=== PATIENT | male | born 1940 | race Caucasian/White ===

== ENCOUNTER → 2019-03-31 | Outpatient (CLI) | payer MEDICARE | LOC: COL.RAD 10:25 | DX: I71.4 Abdominal aortic aneurysm, without rupture (principal); R91.8 Other nonspecific abnormal finding of lung field | CPT/HCPCS: Q9967 ==

== ENCOUNTER 2021-04-06 08:29 | Outpatient (CLI) | payer MEDICARE ==
[2021-04-06] VITALS (17 sets, daily range): BP systolic 134–150; BP diastolic 72–85; PULSE 54–63
[~2021-04-06] VITALS: Ht 180.3 cm; Wt 100.2 kg
[~2021-04-06 08:29] MED LIST: 00186-0372-20 IH; ASPIRIN 81M81 MG/TA2 PO; ATIVAN 0.50.5 MG/TAB PO; ERY-TAB250 M1 PO; EXELON PAT4.6 MG/24 TD; FLOMAX 0.40.4 MG/CAP PO; HYDROXYURE500 MG/CAP PO; IMDUR 60MG60 MG/TAB PO; K-DUR20 MEQ PO; LASIX 40MG TABL40 MG PO; LEXAPRO 5MG5 MG PO; LOPRESSOR 225 MG/TAB PO; MEVACOR40 MG PO; MUCINEX 60600 MG/TA1 PO; NITROSTAT0.4 MG/TAB SL; PLAVIX 75MG TAB75 MG PO; PROTONIX 40MG T40 MG PO; SENNA-S 50 MG-81 TAB PO; SPIRIVA RE2.5 MCG/Ac IH; SYNTHROID 0.10.15 MG PO; VITAMIN D31000 IU PO; [UNRECOGNIZED DRUG - OTHER] INH
--- NOTE | 2021-04-06 10:50 | NUR ---
PT WAS TAKEN TO CT ROOM AND PLACED ON TABLE IN POSITION. MONITORING EQUIPMENT PLACED.
--- NOTE | 2021-04-06 11:35 | NUR ---
Report from Kisha OLIVO. Transferred from Radiology by cart. CRUZ. Left lower flank bandaid CD&I.
--- NOTE | 2021-04-06 11:50 | NUR ---
C/O of chest pain to Kisha OLIVO and she placed pt on telemetry, which shows [address] ST[address] VSS and pt states " it's probably muscular from having my arms over my head for so long." bedside. Will continue to monitor
--- NOTE | 2021-04-06 14:11 | NUR ---
Chest xray clear. Discharge instructions given.
--- NOTE | 2021-04-06 14:20 | NUR ---
Transferred to private car by [facility]
== END 2021-04-06 14:20 | disposition home or self-care (01) ==
LOC: COL.RAD 08:29
DX: J84.10 Pulmonary fibrosis, unspecified (principal); J44.9 Chronic obstructive pulmonary disease, unspecified
CPT/HCPCS: J2250; J3010

== ENCOUNTER 2022-01-13 06:12 | Outpatient (CLI) | payer MEDICARE ==
[~2022-01-13] VITALS: Ht 180.3 cm; Wt 100.0 kg
[2022-01-13] VITALS (16 sets, daily range): BP systolic 140–185; BP diastolic 77–100; PULSE 55–63; TEMP 97.5
[~2022-01-13 06:12] MED LIST changes: +ASPIRIN 32325 MG/TA1 PO; +EXELON4.5 MG PO; +VENTOLIN0.09 MG IH
[2022-01-13] MEDS ORDERED: ATIVAN 0.50.5 MG/TAB PO (06:36)
--- NOTE | 2022-01-13 11:08 | NUR ---
Discharge instructions given to pt.Pt verbalizes understanding.INT removed,cathetr tip intact.Pt escorted out via wheelchair.
== END 2022-01-13 13:04 ==
LOC: COL.RAD 06:12
DX: C34.91 Malignant neoplasm of unspecified part of right bronchus or lung (principal)
CPT/HCPCS: 32106